=== PATIENT | female | born 2005 | race Caucasian/White ===

== ENCOUNTER 2024-02-25 15:33 | Day surgery (SDC) | payer OTHER, SELFPAY ==
[2024-02-25] VITALS (14 sets, daily range): BP systolic 97–127; BP diastolic 54–76; PULSE 53–75; RESP 12–18; TEMP 36.1–37; O2SAT 99–100; BMI 23.0
--- NOTE | 2024-02-25 13:42 | PC.NURSE ---
Report to the Outpatient Waiting Room, entrance under the green pavilion located off [facility], at time _0715_ on date _[id number]_. Planned Procedure Time: _0915_.? Time changes happen often and if your time is changed the preop area will call you the afternoon before. - You and your visitor will be asked to self-screen and do not enter if you have any COVID symptoms. Please call surgeon if you need to reschedule. - A mask is optional within the hospital at this time. Patients may have clear liquids (water, carbonated beverages, clear teas, apple juice) until 3 hours prior to surgery with a maximum of 20 ounces. - No food from midnight until time of surgery and no smoking. This includes no chewing gum, candy or mints. Take only the following medications with a SIP of water on the morning of surgery: ____Pain med if needed. Hasn't picked up new Rx so doesn't know what it is. DO NOT STOP ANY OF YOUR OTHER PRESCRIPTION MEDICATIONS PRIOR TO SURGERY EXCEPT THE FOLLOWING Medications to discontinue per physician ____None Date to take last dose Please no make-up, nail croatian, hairspray, perfume, deodorant, or body powder the day of surgery.? No jewelry (including any body piercings) or valuables the day of surgery, leave them at home.? Please take a shower or bath the night before, or the morning of, surgery with an antibacterial soap.? Wear comfortable, loose fitting clothing.? - Jewelry must be removed prior to entering the operating room.? Rings and piercings that are not removed may be cut off. - The hospital will not accept responsibility for valuables.? - Please leave all valuables, including medications, at home the day of surgery. If you are going home after surgery, a licensed peg driver must drive you home.? - NO public transportation without another adult if you receive anesthesia. - We recommend that an adult stay with you for 24 hours following discharge. - We also recommend that you do not drive, make important decision, drink alcoholic beverages, or take any drugs that were not prescribed by your health care provider for at least 24 hours after your discharge time. Follow any additional instructions given to you from your surgeon. Telephone instructions given to __Sussy__and asked if any additional questions and then verbalized understanding. Patient advised to call surgeon office or pre surgery nurse liaison [phone] if any additional questions.
[2024-02-25 16:00] LABS: Basophils Absolute Auto 0.1 K/mm3 (0.0-0.1); Basophils Percent Auto 0.4 % (0.2-1.2); Eosinophils Absolute Auto 0.1 K/mm3 (0-0.3); Eosinophils Percent Auto 0.6 % (0-4.4); Hematocrit 35.9 % (37.0-47.0); Immature Granulocyte Absolute 0.06 K/mm3 (0.00-0.031); Immature Granulocyte Percent A 0.4 % (0-0.5); Lymphocytes Percent Auto 26.2 % (18.3-44.2); Mean Corpuscular HGB Conc 33.4 g/dl (32-36); Mean Corpuscular Hemoglobin 30.7 pg (26-34); Mean Corpuscular Volume 91.8 fl (80-100); Mean Platelet Volume 10.1 fl (7.4-10.4); Monocytes Absolute Auto 1.1 K/mm3 (0.1-0.6); Monocytes Percent Auto 7.9 % (2.6-8.5); Neutrophils Absolute Auto 9.1 K/mm3 (1.3-6.7); Neutrophils Percent Auto 64.5 % (45.5-73.1); Platelet Count Result 301 k/mm3 (150-375); Red Blood Count 3.91 M/mm3 (4.2-5.4); Red Cell Distribution Width 12.3 % (11.5-14.5); White Blood Count 14.1 K/mm3 (4.5-10.0)
--- NOTE | 2024-02-25 16:02 | ED_ITS ---
HPI - Weakness General Chief complaint: Weakness Stated complaint: suspected hypovolemia Time Seen by Provider: 02/25/24 15:49 Source: patient Mode of arrival: ambulatory Limitations: no limitations History of Present Illness HPI Narrative: Patient presents with vaginal bleeding. She states her LMP was 12/09/23. At approximately her 6 wk ultrasound, a blighted ovum was seen. Patient was advised on miscarriage management and had elected with attempting to pass it naturally but then she started bleeding on Friday a little, 1 pad per day but then within 2 hours earlier today she bled through 2 pairs of period underwear within 10 minutes and then a pair of boxers and sweat pants. Went to Ronen Ng's office who recommend she present to the ED. She has been bleeding large clots. Related Data Home Medications ?Medication ?Instructions ?Recorded ?Confirmed ?Last Taken ?Type No Home Medications 02/25/24 02/25/24 Unknown History Allergies Allergy/AdvReac Type Severity Reaction Status Date / Time No Known Allergies Allergy Verified 02/25/24 17:08 [facility] Past Medical History Medical History (Updated 02/25/24 @ 16:50 by Abelardo Mckenzie, ) Vasovagal syndrome Rheumatoid arthritis Social History Social History Tobacco type: e-cigarettes/vaping Substance use type: marijuana Other substance usage details: once or twice a day. Living arrangements: with family Spiritual care concerns: No Exam 2 Narrative: GENERAL: well-nourished, in moderate acute distress; pale HEAD: Normocephalic, atraumatic. EYES: Non injected, non icteric ENT: Nares clear, no rhinorrhea or epistaxis. NECK: Supple. CHEST: Speaking in full sentences. No respiratory distress. HEART: Bradycardic rate and rhythm. . ABDOMEN: Soft, nondistended. Non tender to palpation. No rigidity/guarding. Not peritoneal. : Blood at external genitalia is appreciated though seems to be briefly improved at the time of my exam compared to a few minutes prior EXTREMITIES: Normal range of motion. No lower extremity edema. SKIN: Warm, dry, no rash. NEURO: No focal deficits. Alert and oriented x3. PSYCH: Normal mood and affect. Course Vital Signs Vital signs: Vital Signs Temperature 97.6 F 02/25/24 15:41 Pulse Rate 53 L 02/25/24 15:41 Respiratory Rate 18 02/25/24 15:41 Pulse Oximetry 99 02/25/24 15:41 Oxygen Delivery Room Air 02/25/24 15:41 Temperature 97.6 F 02/25/24 15:41 Pulse Rate 53 L 02/25/24 15:41 Respiratory Rate 18 02/25/24 15:41 Blood Pressure 126/62 02/25/24 16:10 Pulse Oximetry 99 02/25/24 15:41 Oxygen Delivery Room Air 02/25/24 15:41 MDM - Weakness MDM Narrative Medical decision making narrative: Patient presents with vaginal bleeding. In the ED she is afebrile with VS that show bradycardia. Blood pressure reportedly lower in triage where she had a syncopal episode and was noted to have lost a lost of blood. She had come from [facility] Ronen Ng's office who confirms she had a missed and will need emergent D&C. Hemoglobin normal. This is conveyed to him and he verifies understanding and that he will get the OR team ready. Hyperglycemia without anion gap acidosis. In regards to NPO status, Patient states approximately 2-1/2 hours prior to arrival she did have a few cookies. Hypokalemia. IV ordered. Patient transported to OR. Lab Data 02/25/24 15:54 02/25/24 15:54 Labs: Lab Results 02/25/24 Range/Units 15:54 WBC 14.1 H (4.5-10.0) K/mm3 RBC 3.91 L (4.2-5.4) M/mm3 Hgb 12.0 (12.0-15.0) g/dL Hct 35.9 L (37.0-47.0) % MCV 91.8 (80-100) fl MCH 30.7 (26-34) pg MCHC 33.4 (32-36) g/dl RDW 12.3 (11.5-14.5) % Plt Count 301 (150-375) k/mm3 MPV 10.1 (7.4-10.4) fl Immature Gran % (Auto) 0.4 (0-0.5) % Neut % (Auto) 64.5 (45.5-73.1) % Lymph % (Auto) 26.2 (18.3-44.2) % Amelia % (Auto) 7.9 (2.6-8.5) % Eos % (Auto) 0.6 (0-4.4) % Baso % (Auto) 0.4 (0.2-1.2) % Lymph # (Auto) 3.70 H (0.9-3.2) K/mm3 Amelia # (Auto) 1.1 H (0.1-0.6) K/mm3 Eos # (Auto) 0.1 (0-0.3) K/mm3 Baso # (Auto) 0.1 (0.0-0.1) K/mm3 Abs Immat Gran (auto) 0.06 H (0.00-0.031) K/mm3 Absolute Neuts (auto) 9.1 H (1.3-6.7) K/mm3 Absolute Nucleated RBC 0.000 (0.0-0.012) K/mm3 Nucleated RBC % 0.0 (0.0-0.2) % PT 13.4 (11.1-14.7) Seconds INR 1.0 APTT 25.7 (22.3-36.8) Seconds Sodium 135 (134-143) mmol/L Potassium 3.2 L (3.4-5.0) mmol/L Chloride 105 (98-107) mmol/L Carbon Dioxide 24 (22-30) mmol/L Anion Gap 6 (4-12) mmol/L BUN 6 L (8-21) mg/dL Creatinine 0.49 L (0.7-1.0) mg/dL Estim Creat Clear Calc 122 ml/min Estimated GFR > 60 (59 - ) Glucose 143 H (65-110) mg/dL Calcium 8.9 (8.9-10.7) mg/dL Magnesium 1.8 (1.6-2.3) mg/dL Total Bilirubin 0.5 (0.2-1.3) mg/dL AST 30 (14-36) U/L ALT 31 (6-35) U/L Alkaline Phosphatase 69 (45-116) U/L Total Protein 7.0 (6.3-8.6) g/dL Albumin 4.1 (3.7-5.6) g/dL Beta HCG, Quant 4701.30 mIU/ML Blood Type A Positive Antibody Screen Negative Screen Not Reportable Baby's Blood Type Not Reportable Baby's CHARLENE Not Reportable Doses of RhIg Required 0 Discharge Plan Discharge Clinical Impression: , missed, Vaginal bleeding before 22 weeks gestation, Hyperglycemia, Hypokalemia Patient Disposition: Still a Patient Condition: Stable
[2024-02-25 16:10] LABS: Alanine Aminotransferase 31 U/L (6-35); Albumin Level 4.1 g/dL (3.7-5.6); Alkaline Phosphatase 69 U/L (45-116); Anion Gap 6 mmol/L (4-12); Aspartate Amino Transferase 30 U/L (14-36); Bilirubin,Total 0.5 mg/dL (0.2-1.3); Blood Urea Nitrogen 6 mg/dL (8-21); Calcium 8.9 mg/dL (8.9-10.7); Carbon Dioxide 24 mmol/L (22-30); Chloride 105 mmol/L (98-107); Estimated CRCL calculation 122 ml/min; Estimated Glomerular Filt Rate > 60; Glucose 143 mg/dL (65-110); Potassium 3.2 mmol/L (3.4-5.0); Sodium 135 mmol/L (134-143)
[2024-02-25 16:12] LABS: Prothrombin Time 13.4 Seconds (11.1-14.7)
[2024-02-25 16:13] LABS: Partial Thromboplastin Time 25.7 Seconds (22.3-36.8)
--- NOTE | 2024-02-25 16:14 | HP_ITS ---
This report was moved to the correct visit on 02/26/2024. The original report was signed by Jamal Fraser MD on 02/25/241613. History and Physical Update Update Date/Time: 02/25/24 16:14 History and Physical has been reviewed, including an updated exam of the patient. There are NO changes in the patient's condition. Risks, benefits, and alternatives have been discussed and questions answered. Patient agrees to proceed with procedure. Please be advised this is a medical document. It is intended for crsj-qo-hypy communication. It is written in medical language and may contain unfamiliar abbreviations or verbiage. Medical documents are intended to carry relevant information, facts as evident, and the clinical opinion of the practitioner at the time of the encounter. This report may have been done utilizing a voice recognition system. Attempts have been made to correct errors. However, there may be uncorrected grammatical, spelling, and recognition errors present. The file time of this note does not necessarily represent the time the patient was seen. Report Initialized date/time: Jamal Fraser MD 02/25/241613 Electronically signed by: Jamal Fraser MD 02/25/241613 [facility]
--- NOTE | 2024-02-25 16:14 | HP_ITS ---
This report was moved to the correct visit on 02/26/2024. The original report was signed by Jamal Fraser MD on 02/25/24 [id number]. H&P: HPI History of Present Illness Date/Time: 02/25/24 16:11 Chief Complaint: /vaginal bleeding with missed A/B Narrative: This is a 18-year-old 1 para 0 in her 1st trimester of the with the known missed A/B she has been following this for couple weeks and did not succumb to a suction D&C she began bleeding heavily and is in the ER. Her bleeding is somewhat slowed but she will undergo suction dilatation curettage Review of Systems Review of Systems: All systems reviewed & are unremarkable except as noted in HPI and below PMFSH Social History Social History Tobacco type: e-cigarettes/vaping Substance use type: marijuana Other substance usage details: once or twice a day. Living arrangements: with family Spiritual care concerns: No Meds Home Medications and Allergies Home Medications ?Medication ?Instructions ?Recorded ?Confirmed ?Type No Home Medications 02/25/24 02/25/24 History Allergies Allergy/AdvReac Type Severity Reaction Status Date / Time No Known Allergies Allergy Verified 02/25/24 15:36 Exam Const: General: cooperative, healthy appearing, comfortable and uncomfortable Nutritional Appearance: average body habitus Orientation/consciousness: oriented to person, oriented to place and oriented to time HENMT: Head: normal to inspection Resp: Effort & Inspection: normal respiratory effort Cardio: Rate: regular rate Rhythm: regular rhythm Heart sounds: S1 normal heart sound present and S2 normal heart sound present GI: Inspection: normal to inspection Auscultation: normal bowel sounds : External Female Exam: normal external appearance and normal appearance of the urethra Speculum Exam - Vagina: normal appearance of the vagina Speculum Exam - Cervix: normal appearance of the cervix Bimanual exam- vagina & uterus: enlarged Bimanual Exam- Adnexa, other: normal adnexae Assessment and Plan Assessment and plan (1) Vaginal bleeding before 22 weeks gestation: Code(s): O20.9 - Hemorrhage in early , unspecified Status: Acute (2) , missed: Code(s): O02.1 - Missed Status: Acute Plan Proceed with suction dilatation curettage Please be advised this is a medical document. It is intended for niin-od-amxh communication. It is written in medical language and may contain unfamiliar abbreviations or verbiage. Medical documents are intended to carry relevant information, facts as evident, and the clinical opinion of the practitioner at the time of the encounter. This report may have been done utilizing a voice recognition system. Attempts have been made to correct errors. However, there may be uncorrected grammatical, spelling, and recognition errors present. The file time of this note does not necessarily represent the time the patient was seen. Report Initialized date/time: Jamal Fraser MD 02/25/24 / 1614 Electronically signed by: Jamal Fraser MD 02/25/24 161 [facility]
--- NOTE | 2024-02-25 16:29 | PC.NURSE ---
Chemistry called for magnesium add on
--- NOTE | 2024-02-25 16:49 | P.PNAN_ITS ---
Anes - Initial Pre Proc Eval Procedure: suction D&C Date/Time: 02/25/24 16:49 Surgeon: Jamal Ng MD Pre Op Diagnosis: missed Ab Pre Op Diagnosis: suspected hypovolemia Patient Data Age: 18 Gender: F Height: 1.57 m Weight: 56 kg Last Vital Signs Temp 36.4 C 02/25/24 15:41 Pulse 53 L 02/25/24 15:41 Resp 18 02/25/24 15:41 BP 126/62 02/25/24 16:10 Pulse Ox 99 02/25/24 15:41 O2 Del Method Room Air 02/25/24 15:41 Allergies Allergy/AdvReac Type Severity Reaction Status Date / Time No Known Allergies Allergy Verified 02/25/24 15:36 Home Medications ?Medication ?Instructions ?Recorded ?Confirmed ?Type No Home Medications 02/25/24 02/25/24 History Laboratory Tests 02/25/24 15:54 WBC 14.1 H K/mm3 (4.5-10.0) RBC 3.91 L M/mm3 (4.2-5.4) Hgb 12.0 g/dL (12.0-15.0) Hct 35.9 L % (37.0-47.0) MCV 91.8 fl (80-100) MCH 30.7 pg (26-34) MCHC 33.4 g/dl (32-36) RDW 12.3 % (11.5-14.5) Plt Count 301 k/mm3 (150-375) MPV 10.1 fl (7.4-10.4) Immature Gran % (Auto) 0.4 % (0-0.5) Neut % (Auto) 64.5 % (45.5-73.1) Lymph % (Auto) 26.2 % (18.3-44.2) Montague % (Auto) 7.9 % (2.6-8.5) Eos % (Auto) 0.6 % (0-4.4) Baso % (Auto) 0.4 % (0.2-1.2) Lymph # (Auto) 3.70 H K/mm3 (0.9-3.2) [place] # (Auto) 1.1 H K/mm3 (0.1-0.6) Eos # (Auto) 0.1 K/mm3 (0-0.3) Baso # (Auto) 0.1 K/mm3 (0.0-0.1) Abs Immat Gran (auto) 0.06 H K/mm3 (0.00-0.031) Absolute Neuts (auto) 9.1 H K/mm3 (1.3-6.7) Absolute Nucleated RBC 0.000 K/mm3 (0.0-0.012) Nucleated RBC % 0.0 % (0.0-0.2) PT 13.4 Seconds (11.1-14.7) INR 1.0 APTT 25.7 Seconds (22.3-36.8) Sodium 135 mmol/L (134-143) Potassium 3.2 L mmol/L (3.4-5.0) Chloride 105 mmol/L (98-107) Carbon Dioxide 24 mmol/L (22-30) Anion Gap 6 mmol/L (4-12) BUN 6 L mg/dL (8-21) Creatinine 0.49 L mg/dL (0.7-1.0) Estim Creat Clear Calc 122 ml/min Estimated GFR > 60 (59 - ) Glucose 143 H mg/dL (65-110) Calcium 8.9 mg/dL (8.9-10.7) Total Bilirubin 0.5 mg/dL (0.2-1.3) AST 30 U/L (14-36) ALT 31 U/L (6-35) Alkaline Phosphatase 69 U/L (45-116) Total Protein 7.0 g/dL (6.3-8.6) Albumin 4.1 g/dL (3.7-5.6) Beta HCG, Quant 4701.30 mIU/ML Patient hx anesthesia problems: none Family hx anesthesia problems: none Results Review: All pre-operative results and documents have been reviewed as part of the pre- operative evaluation. [facility] Past Medical History Medical History (Updated 02/25/24 @ 16:50 by Abelardo Mckenzie DO) Vasovagal syndrome Rheumatoid arthritis Social History Social History Tobacco type: e-cigarettes/vaping Substance use type: marijuana Other substance usage details: once or twice a day. Living arrangements: with family Spiritual care concerns: No Anes - Eval Final PreProcedure Day of Procedure 02/25/24 16:49 Patient weight: normal Heart: regular rate and rhythm Lungs: clear to auscultation and normal air movement Airway: Mallampati scale class 1 Neurological: alert and oriented Last oral intake: 4 hours (cookies 3 hours ago) ASA classification: III Emergent: yes Anesthetic plan: proceed Anesthesia type and monitoring: general ETT and standard monitoring Results Review: All pre-operative results and documents have been reviewed as part of the pre- operative evaluation. Informed Consent: The patient's anesthetic plan and its attendant risks and benefits were discussed with the patient/family/POA. Questions were solicited and answers provided to the satisfaction of the patient/family/POA.
[2024-02-25] MEDS: KCL 20 MEQ/SW 100 ML 100 ML 50 MEQ IVPB (16:56)
[2024-02-25 16:57] LABS: Magnesium 1.8 mg/dL (1.6-2.3)
[2024-02-25] MEDS: LIDOCAINE 1% LOCAL INJ 10 ML VIAL INFILTRATE (17:22)
--- NOTE | 2024-02-25 17:32 | OP_ITS ---
This report was moved to the correct visit on 02/27/2024. The original report was signed by Jamal Fraser MD on 02/25/241731. Procedure Note - Detailed Date of Procedure 02/25/24 Pre-op Diagnosis missed ab Post-op Diagnosis Same Procedure Performed suction dilatation jossy curettage Surgeon Jamal Ng MD Anesthesia General and Local Indications this is a 18-year-old the 1st trimester missed A/B actively bleed Findings ing uterus sounded to 10cm. Tissue consistent with products of conception. Description of Procedure Patient was prepped draped in the normal sterile fashion placed in dorsal lithotomy position. Under excellent general endotracheal anesthesia weighted speculum placed posterior fornix vagina. Anterior lip of the cervix grasped with a single-tooth tenaculum. 2.5cc 1% xylocaine anesthesia placed at 2, 4, 8, 10:00 a.m. the cervix. Uterus sounded to 10cm. Serial dilatation with fragmented dilators performed followed by passes the 10. Suction curette a moderate amount of blood and clot of tissue was removed from the uterus. When a good grating sound was heard the instruments withdrawn blood loss was estimated 50cc. All sponge, needle, instrument counts were correct. There were no immediate complications noted Estimated Blood Loss 50 Drains No Packing No Pathology Yes Complications No immediate complications Condition Stable Disposition PACU Please be advised this is a medical document. It is intended for dkjl-yk-wcsz communication. It is written in medical language and may contain unfamiliar abbreviations or verbiage. Medical documents are intended to carry relevant information, facts as evident, and the clinical opinion of the practitioner at the time of the encounter. This report may have been done utilizing a voice recognition system. Attempts have been made to correct errors. However, there may be uncorrected grammatical, spelling, and recognition errors present. The file time of this note does not necessarily represent the time the patient was seen. Report Initialized date/time: Jamal Fraser MD 02/25/241731 Electronically signed by: Jamal Fraser MD 02/25/241731 [facility]
[2024-02-25] MEDS: LACTATED RINGERS 1,000 ML 30 ML IV CONT ×2 (17:39→18:31)
--- NOTE | 2024-02-25 20:46 | SUR.PHASEII ---
Patient had a K rider that was started in pre-op associated with other V#. RN let it completely infuse before discharging patient home.
== END 2024-02-25 19:50 | disposition home or self-care (01) ==
LOC: ANHED 16:21 → ANHSURGERY 16:23
PROVIDERS: Physician Assistant; Emergency Provider Student in an Organized Health Care Education/Training Program; Visit Provider Obstetrics & Gynecology
PROC: (CPT 59820; principal; 2024-02-25 16:00)
DX: O02.1 Missed abortion (principal); F17.290 Nicotine dependence, other tobacco product, uncomplicated; F12.90 Cannabis use, unspecified, uncomplicated; M06.9 Rheumatoid arthritis, unspecified
CPT/HCPCS: 59820; 36415; 80053; 83735; 84702; 85025; 85461; 85610; 85730; 86850; 86900; 86901; 88305; J2003; J2250; J3010; J3480

== ENCOUNTER 2025-01-01 05:26 | Outpatient (CLI) | payer OTHER, SELFPAY ==
--- NOTE | 2025-01-01 06:00 | PC.NURSE ---
See OBIX note for additional heart rate assessment.
[2025-01-01 06:31] VITALS: BP 119/70; PULSE 70
[2025-01-01 06:46] VITALS: BP 127/71; PULSE 80
[2025-01-01 07:01] VITALS: BP 119/81; PULSE 69
[2025-01-01 07:16] VITALS: BP 113/82; PULSE 82
--- NOTE | 2025-01-01 07:16 | PC.NURSE ---
Called Dr. Celis with pt status. Pt admitted with complaints of leaking fluid. ROM plus negative. Reactive tracing. Occasional contractions noted on tracing. June D/C home.
== END 2025-01-01 07:23 | disposition home or self-care (01) ==
LOC: ANHOBOP 06:23 → ANHLDR 06:29
PROVIDERS: PCP Family Medicine; Visit Provider Obstetrics & Gynecology
DX: O42.90 Premature rupture of membranes, unspecified as to length of time between rupture and onset of labor, unspecified weeks of gestation (principal); Z3A.00 Weeks of gestation of pregnancy not specified
CPT/HCPCS: 84112

== ENCOUNTER 2025-01-04 03:05 | Inpatient (IN) | payer OTHER, SELFPAY ==
[2025-01-04] VITALS (143 sets, daily range): BP systolic 79–156; BP diastolic 35–102; PULSE 56–228; RESP 15–18; TEMP 36.4–37.3; O2SAT 83–100; BMI 36.3
--- NOTE | 2025-01-04 03:51 | LDADM ---
This patient, Sussy Licona, was admitted to Labor/Delivery/Recovery 105 on 01/04/25 at 03:05. Plans for labor, pain management and were discussed with patient. Patient/family oriented to hospital policies and general routines including ID bracelet, bed and alarms, visiting hours, pain management, procedures, bathroom and other care routines, personal items, smoking policy, room service/diet and guest tray routines, infant security routines, and visiting hours. Patient/Family are encouraged to report perceived risks to care and to ask questions if they do not understand what they are told or what they should do. See OBIX for further documentation.
[2025-01-04 04:10] LABS: Hematocrit 30.7 % (37.0-47.0); Hemoglobin 9.5 g/dL (12.0-15.0); Immature Granulocyte Percent A 1.0 % (0-0.5); Lymphocytes Absolute Auto 1.71 K/mm3 (0.9-3.2); Mean Corpuscular HGB Conc 30.9 g/dl (32-36); Mean Corpuscular Hemoglobin 25.2 pg (26-34); Mean Corpuscular Volume 81.4 fl (80-100); Nucleated Red Blood Cells Absolute Auto 0.000 K/mm3 (0.0-0.012); Nucleated Red Blood Cells Perc 0.0 % (0.0-0.2); Platelet Count Result 231 k/mm3 (150-375); Red Blood Count 3.77 M/mm3 (4.2-5.4); White Blood Count 12.4 K/mm3 (4.5-10.0)
[2025-01-04] MEDS: LACTATED RINGERS 1,000 ML 125 ML IV CONT (04:17)
[2025-01-04] MEDS: OXYTOCIN 30 UNITS/NS 500 ML 30 UNITS/500 ML BAG IV CONT (04:17)
[2025-01-04 04:50] LABS: Syphilis IgG/IgM Antibody Non-Reactive (Nonreactive)
[2025-01-04] MEDS: fentaNYL CITRATE INJ (*CRX) 100 MCG/2 ML VIAL IV PUSH ×3 (05:45→08:02)
--- NOTE | 2025-01-04 06:23 | P.PNAN_ITS ---
Anes - Eval Pre Procedure Procedure: Labor epidural Date/Time: 01/04/25 06:23 Surgeon: Ronen Ng Preop Diagnosis: Abdominal pain with contractions Pre Op Diagnosis: Contractions Patient Data Age: 19 Gender: F Height: 1.57 m Weight: 90 kg Last Vital Signs Temp 97.5 F L 01/04/25 03:30 Pulse 83 01/04/25 06:15 BP 124/66 01/04/25 06:15 Pulse Ox 97 01/04/25 06:17 Allergies Allergy/AdvReac Type Severity Reaction Status Date / Time No Known Allergies Allergy Verified 01/04/25 04:01 Home Medications ?Medication ?Instructions ?Recorded ?Confirmed ?Type No Home Medications 02/25/24 01/01/25 H istory Laboratory Tests 01/04/25 04:05 WBC 12.4 H K/mm3 (4.5-10.0) RBC 3.77 L M/mm3 (4.2-5.4) Hgb 9.5 L g/dL (12.0-15.0) Hct 30.7 L % (37.0-47.0) MCV 81.4 fl (80-100) MCH 25.2 L pg (26-34) MCHC 30.9 L g/dl (32-36) RDW 15.2 H % (11.5-14.5) Plt Count 231 k/mm3 (150-375) MPV 11.2 H fl (7.4-10.4) Immature Gran % (Auto) 1.0 H % (0-0.5) Neut % (Auto) 75.7 H % (45.5-73.1) Lymph % (Auto) 13.8 L % (18.3-44.2) Caldwell % (Auto) 8.6 H % (2.6-8.5) Eos % (Auto) 0.6 % (0-4.4) Baso % (Auto) 0.3 % (0.2-1.2) Lymph # (Auto) 1.71 K/mm3 (0.9-3.2) Caldwell # (Auto) 1.1 H K/mm3 (0.1-0.6) Eos # (Auto) 0.1 K/mm3 (0-0.3) Baso # (Auto) 0.0 K/mm3 (0.0-0.1) Abs Immat Gran (auto) 0.13 H K/mm3 (0.00-0.031) Absolute Neuts (auto) 9.4 H K/mm3 (1.3-6.7) Absolute Nucleated RBC 0.000 K/mm3 (0.0-0.012) Nucleated RBC % 0.0 % (0.0-0.2) Syphilis IgG/IgM Ab Non-reactive (Nonreactive) Blood Type A Positive Antibody Screen Negative : gestational age HCG: positive Patient hx anesthesia problems: none Family hx anesthesia problems: none Results Review: All pre-operative results and documents have been reviewed as part of the pre- operative evaluation. [facility] Past Medical History Medical History Obesity OCD (obsessive compulsive disorder) PTSD (post-traumatic stress disorder) Anxiety and depression Vasovagal syndrome Rheumatoid arthritis Family History Family History Grandparent Diabetes 1.5, managed as type 2 Colon cancer Heart attack Hypertension Mother Diabetes 1.5, managed as type 2 Hypertension Cerebrovascular accident Hypothyroidism PCOS (polycystic ovarian syndrome) Other Hypertension PCOS (polycystic ovarian syndrome) Sibling Hypertension PCOS (polycystic ovarian syndrome) Endometriosis Social History Social History Smoking status: Never smoker Tobacco type: e-cigarettes/vaping Substance use: former Substance use type: marijuana Other substance usage details: once or twice a day. Last use: 11/2024 Lack of Transportation: No Lack of Food: Never True Current Housing: I Have Housing Concerned About Future Housing: No Difficulty Paying Gas/Electric Bills: No Difficulty Paying for Meds: No Currently Unemployed: No Education: High School Diploma/GED Difficulty w/ Childcare or Family Care: No Living arrangements: with family Spiritual care concerns: No Exam Day of Procedure 01/04/25 06:23 Patient weight: obese
--- NOTE | 2025-01-04 06:47 | P.HP_ITS ---
H&P: HPI History of Present Illness Date/Time: 01/04/25 06:47 Chief Complaint: Rupture of membranes at term Narrative: This is a 19 year 2 para 0010 whose last menstrual period was 04/16/2024, EDC is 01/27/2025, presents at 36 and 5 7th weeks gestation with spontaneous rupture membranes prior to admission she is negative for group B strep and passed her diabetic screen had been otherwise unremarkable Review of Systems Review of Systems: All systems reviewed & are unremarkable except as noted in HPI and below PMFSH Past Medical History Medical History Obesity OCD (obsessive compulsive disorder) PTSD (post-traumatic stress disorder) Anxiety and depression Vasovagal syndrome Rheumatoid arthritis Family History Family History Grandparent Diabetes 1.5, managed as type 2 Colon cancer Heart attack Hypertension Mother Diabetes 1.5, managed as type 2 Hypertension Cerebrovascular accident Hypothyroidism PCOS (polycystic ovarian syndrome) Other Hypertension PCOS (polycystic ovarian syndrome) Sibling Hypertension PCOS (polycystic ovarian syndrome) Endometriosis Social History Social History Smoking status: Never smoker Tobacco type: e-cigarettes/vaping Substance use: former Substance use type: marijuana Other substance usage details: once or twice a day. Last use: 11/2024 Lack of Transportation: No Lack of Food: Never True Current Housing: I Have Housing Concerned About Future Housing: No Difficulty Paying Gas/Electric Bills: No Difficulty Paying for Meds: No Currently Unemployed: No Education: High School Diploma/GED Difficulty w/ Childcare or Family Care: No Living arrangements: with family Spiritual care concerns: No Meds Home Medications and Allergies Home Medications ?Medication ?Instructions ?Recorded ?Confirmed ?Type No Home Medications 02/25/24 01/01/25 H istory Allergies Allergy/AdvReac Type Severity Reaction Status Date / Time No Known Allergies Allergy Verified 01/04/25 04:01 Vital Signs Vital Signs - 24 hr 01/04/25 03:30 01/04/25 03:37 01/04/25 03:38 Temperature 97.5 F L Pulse Rate 76 Blood Pressure 141/87 H Pulse Oximetry 97 01/04/25 03:42 01/04/25 03:45 01/04/25 03:47 Temperature Pulse Rate 84 Blood Pressure 135/84 Pulse Oximetry 97 97 01/04/25 03:52 01/04/25 03:57 01/04/25 04:00 Temperature Pulse Rate 85 Blood Pressure 136/81 Pulse Oximetry 98 98 01/04/25 04:02 01/04/25 04:07 01/04/25 04:12 Temperature Pulse Rate Blood Pressure Pulse Oximetry 98 98 98 01/04/25 04:15 01/04/25 04:17 01/04/25 04:22 Temperature Pulse Rate 82 Blood Pressure 140/96 H Pulse Oximetry 98 100 01/04/25 04:27 01/04/25 04:31 01/04/25 04:32 Temperature Pulse Rate 77 Blood Pressure 94/62 L Pulse Oximetry 97 97 01/04/25 04:37 01/04/25 04:42 01/04/25 04:45 Temperature Pulse Rate 70 Blood Pressure 120/80 Pulse Oximetry 98 99 01/04/25 04:47 01/04/25 04:52 01/04/25 04:57 Temperature Pulse Rate Blood Pressure Pulse Oximetry 98 97 98 01/04/25 05:00 01/04/25 05:02 01/04/25 05:07 Temperature Pulse Rate 78 Blood Pressure 129/79 Pulse Oximetry 98 97 01/04/25 05:12 01/04/25 05:15 01/04/25 05:17 Temperature Pulse Rate 88 Blood Pressure Pulse Oximetry 97 92 01/04/25 05:19 01/04/25 05:22 01/04/25 05:27 Temperature Pulse Rate 87 Blood Pressure 127/86 Pulse Oximetry 97 97 01/04/25 05:30 01/04/25 05:32 01/04/25 05:37 Temperature Pulse Rate 83 Blood Pressure 149/89 H Pulse Oximetry 97 96 01/04/25 05:42 01/04/25 05:47 01/04/25 05:52 Temperature Pulse Rate Blood Pressure Pulse Oximetry 98 97 96 01/04/25 05:57 01/04/25 06:00 01/04/25 06:02 Temperature Pulse Rate 98 Blood Pressure 143/81 H Pulse Oximetry 98 97 01/04/25 06:07 01/04/25 06:12 01/04/25 06:15 Temperature Pulse Rate 83 Blood Pressure 124/66 Pulse Oximetry 97 96 01/04/25 06:17 01/04/25 06:30 01/04/25 06:45 Temperature Pulse Rate 90 81 Blood Pressure 139/78 129/69 Pulse Oximetry 97 Exam Const: General: cooperative, healthy appearing and comfortable Nutritional Appearance: average body habitus Orientation/consciousness: oriented to person, oriented to place and oriented to time HENMT: Head: normal to inspection Chest: Chest palpation & inspection: normal inspection of the chest Resp: Effort & Inspection: normal respiratory effort Cardio: Rate: regular rate Rhythm: regular rhythm Heart sounds: S1 normal heart sound present and S2 normal heart sound present GI: Inspection: normal to inspection (Gravid soft uterus) : External Female Exam: normal external appearance Speculum Exam - Vagina: normal appearance of the vagina Speculum Exam - Cervix: normal appearance of the cervix (The cervix 3cm. Clear fluid seen heart tones re assuring) H&P: Results Labs Labs: Short CBC 01/04/25 Range/Units 04:05 WBC 12.4 H (4.5-10.0) K/mm3 Hgb 9.5 L (12.0-15.0) g/dL Hct 30.7 L (37.0-47.0) % Plt Count 231 (150-375) k/mm3 Assessment and Plan Assessment and plan (1) Term : Code(s): Z34.90 - Encounter for supervision of normal , unspecified, unspecified trimester Status: Acute Plan Spontaneous vaginal delivery expected she is an epidural candidate.
--- NOTE | 2025-01-04 07:55 | PC.NURSE ---
Pt asked about risks involved with an epidural. I told her I would have someone from anesthesia discuss those risks with her. I spoke with Dr. Astorga and requested that someone go over risks with the pt. Dr. Astorga said he is not going to talk the pt into an epidural. I explained to him that she is undecided because she is concerned about any potential risks to her back specifically. He told me to give her pain medicine. I told him she has had two doses of fentanyl. He then asked me if no one explained an epidural to her during the last 9 months. I told him I have no idea what Dr. Ronen Ng discussed with her. Dr. Astorga then said they are swamped and he doesn't have time to do a pain consult on the day of, but if they get a break, he will send someone over, but if she changes her mind, let him know and he will come over and start an epidural.
[2025-01-04] MEDS: ONDANSETRON INJ 4 MG/2 ML VIAL IV PUSH (09:37)
[2025-01-04] MEDS: AMPICILLIN SODIUM 2 GM in SODIUM CHLORIDE 0.9% IV 100 ML 200 ML IVPB (12:05)
--- NOTE | 2025-01-04 12:18 | PM.OBPNLAB ---
Pain Control Date/time seen: 01/04/25 12:18 Pain control: tolerating well and epidural Pelvic Exam Dilation (cm): 6 Effacement (%): 100 station: -1 Amniotic membrane status: Leaking Comments: abx started Contractions Monitor mode: Internal
--- NOTE | 2025-01-04 13:54 | PM.OBPRVD ---
OB - Vaginal Delivery Note Procedure Delivery date: 01/04/25 Events: Premature Rupture of Membranes Induction method: None Delivery monitor: External FHT, External Uterine and Internal Uterine Route of delivery: Episiotomy description: None Laceration Description: Perineal - 2nd Degree Delivery repair: vicryl Specimen: No Quantitative Blood Loss (ml): 62 Anesthesia type: Epidural Disposition: Floor Complications: No immediate complications Narrative: Patient was admitted spontaneous rupture membranes at 36 and 5 7th weeks gestation Pitocin augmentation was begun after admission about 12hours out see progress an unremarkable 1st stage of labor had epidural anesthesia placed internal monitors placed she was complete she pushed delivered head spontaneously in the MARISABEL position. Anterior posterior shoulder delivered spontaneously. Cord clamped into a passed off the table given Apgars of 8 [id number] and 8 [id number]. Cord blood was drawn. Placenta delivered intact spontaneously. Twenty of Pitocin placed IV to help firm the uterus. The second-degree laceration was noted which did not extend and was closed with layered 3-0 Vicryl. QBL was 62cc. All sponge, needle, instrument counts were correct. There were no immediate complications Baby Date of : 01/04/25 Time of : 13:44 Gestational Age by Date: 36 gender: Female presentation: vertex position: Right Occiput Anterior Placenta delivery description: Spontaneous Cord Vessel Description: 3 Vessels score one minute: 8 score five minutes: 8
--- NOTE | 2025-01-04 13:58 | P.DS_ITS ---
DS: Admitting Diagnosis Discharge Date 01/05/2025 Admitting Diagnosis rupture membranes DS: Discharge Diagnosis Discharge Diagnosis (1) premature rupture of membranes: Code(s): O42.919 - premature rupture of membranes, unspecified as to length of time between rupture and onset of labor, unspecified trimester Status: Acute DS: Summary Hospital Course Reason for hospitalization: Patient was admitted on the evening of 01/03/2025 and underwent spontaneous vaginal delivery on 01/04/2025 Hospital Course: Patient's hospital course unremarkable. She remained afebrile. She was up, voiding without difficulty, eating regular diet, ambulating, generally without complaints. Time Spent with Patient Time attestation: Total time spent providing and/or coordinating discharge services: Exam Const: General: cooperative, healthy appearing and comfortable Nutritional Appearance: average body habitus Orientation/consciousness: oriented to person, oriented to place and oriented to time HENMT: Head: normal to inspection Chest: Chest palpation & inspection: normal inspection of the chest Resp: Effort & Inspection: normal respiratory effort Cardio: Rate: regular rate Rhythm: regular rhythm Heart sounds: S1 normal heart sound present and S2 normal heart sound present GI: Inspection: normal to inspection (Gravid soft uterus) : External Female Exam: normal external appearance Speculum Exam - Vagina: normal appearance of the vagina Speculum Exam - Cervix: normal appearance of the cervix (The cervix 3cm. Clear fluid seen heart tones reassuring) DS: Data Data Completed and Pending Labs on day of discharge: Labs from last 24 hours 01/04/25 04:05 WBC 12.4 H RBC 3.77 L Hgb 9.5 L Hct 30.7 L MCV 81.4 MCH 25.2 L MCHC 30.9 L RDW 15.2 H Plt Count 231 MPV 11.2 H Immature Gran % (Auto) 1.0 H Neut % (Auto) 75.7 H Lymph % (Auto) 13.8 L Callahan % (Auto) 8.6 H Eos % (Auto) 0.6 Baso % (Auto) 0.3 Lymph # (Auto) 1.71 Callahan # (Auto) 1.1 H Eos # (Auto) 0.1 Baso # (Auto) 0.0 Abs Immat Gran (auto) 0.13 H Absolute Neuts (auto) 9.4 H Absolute Nucleated RBC 0.000 Nucleated RBC % 0.0 Syphilis IgG/IgM Ab Non-reactive Blood Type A Positive Antibody Screen Negative Discharge Plan Discharge Attending physician on discharge: Jamal Fraser Discharging Clinician: Jamal Fraser Patient Disposition: Home Activity: may shower, no straining and pelvic rest Diet: heart healthy Wound Care Instructions: follow printed instructions Patient Instructions: Antibiotic Form Patient Language: Macedonian Stand Alone Forms: General Discharge Information Follow-up/Referrals: Jamal Fraser MD [Physician, [facility]] Discharge Medications: No Action No Home Medications Date of admission: 01/04/25 03:05 Primary Care Provider: Faina,Louis Livingston Admitting Provider: Jamal Fraser Attending physician on admission: Jamal Fraser Condition: Stable
[2025-01-04] MEDS: OXYTOCIN 30 UNITS/NS 500 ML 30 UNITS/500 ML BAG 125 UNITS IV CONT (14:17)
[2025-01-04] MEDS: WITCH HAZEL 40 PADS 1 PAD TOPICAL (15:03)
[2025-01-04] MEDS: BENZOCAINE 20% AER SPR (*SP) 56 GM CAN 1 SPRAY TOPICAL (15:03)
[2025-01-04] MEDS: ACETAMINOPHEN 325 MG TABLET 650 MG PO ×2 (15:03→23:55)
[2025-01-04] MEDS: METHYLERGONOVINE MALEATE 0.2 MG/ML VIAL IM (15:03)
--- NOTE | 2025-01-04 16:45 | OBPPTRN ---
Patient transferred to post room # 284 via wheelchair. Support person present. Oriented to unit, room, information board, rooming in, admission packet and security measures. Patient verbalizes understanding.
[2025-01-05 05:01] VITALS: BP 121/73; PULSE 73; RESP 16; TEMP 36.7; O2SAT 99
[2025-01-05 05:17] LABS: Hematocrit 27.4 % (37.0-47.0); Hemoglobin 8.3 g/dL (12.0-15.0)
[2025-01-05 07:15] VITALS: BP 123/78; PULSE 82; RESP 18; TEMP 36.8; O2SAT 99
--- NOTE | 2025-01-05 07:16 | P.PNOB_ITS ---
OB - PN: Subj Subjective Date/time seen: 01/05/25 07:16 Patient comments: no complaints, pain well controlled and tolerating diet [place] baby status: doing well OB - PN: Obj Data Labs 01/05/25 04:11 Labs: Laboratory Results - last 24 hr 01/05/25 04:11 Hgb 8.3 L Hct 27.4 L OB - PN A/P Assessment and Plan (1) premature rupture of membranes: Code(s): O42.919 - premature rupture of membranes, unspecified as to length of time between rupture and onset of labor, unspecified trimester Status: Acute Plan begin iron replacement Time Spent With Patient Time: Total time spent is greater than 50% in coordination of care (as documented) at patient's floor/unit and/or counseling patient: Review of Systems 2 Review of Systems: All systems reviewed & are unremarkable except as noted in HPI and below Exam 2 Const: General: cooperative, healthy appearing and comfortable Nutritional Appearance: average body habitus Orientation/consciousness: oriented to person, oriented to place and oriented to time HENMT: Head: normal to inspection Chest: Chest palpation & inspection: normal inspection of the chest Resp: Effort & Inspection: normal respiratory effort Cardio: Rate: regular rate Rhythm: regular rhythm Heart sounds: S1 normal heart sound present and S2 normal heart sound present GI: Inspection: normal to inspection (Gravid soft uterus) : External Female Exam: normal external appearance Speculum Exam - Vagina: normal appearance of the vagina Speculum Exam - Cervix: normal appearance of the cervix (The cervix 3cm. Clear fluid seen heart tones reassuring)
[2025-01-05] MEDS: MULTIVIT/MIN/PREN/FOL AC/IRON TABLET 1 TAB PO (09:19)
[2025-01-05] MEDS: DOCUSATE SODIUM 100 MG CAPSULE PO ×2 (09:19→18:17)
[2025-01-05] MEDS: ACETAMINOPHEN 325 MG TABLET 650 MG PO ×2 (09:21→18:17)
[2025-01-05 12:19] VITALS: BP 107/51; PULSE 74; RESP 14; TEMP 36.9; O2SAT 98
--- NOTE | 2025-01-05 13:25 | PC.NURSE ---
Consulted with patient to assess needs related to . Discussed with mother her successes, concerns and any questions she has. Per mother this is the second time she has used the nipple shield to latch , prior to my arrival he fed for 4 minutes on her right breast with the shield in cross cradle position. Infant is showing feeding cues at this time so mother would like to see if infant will feed at the breast. We reviewed working with the , supporting breast, protecting her nipples with an optimal deep latch, good positioning, and good hand washing. Encouraged understanding the benefits of skin to skin, responding to feeding cues, frequencies of feeding 8-12 times in 24 hours (approximately 2-3 hours), duration of feedings, milk production, intake/output feeding sheet and signs of adequate intake encouraging swallowing at the breast. Reviewed positioning and alignment, supporting breast, off-centered (asymmetrical latch) and leading with the chin with big, open, wide gape. Infant attempted to latch without a nipple shield but was unsuccessful, 5mls of formula was given per mothers choice as infant was showing later hunger cues. then latched optimally with the nipple shield to the [right] breast in [football] position. Education given to the mother of how to visualize the suckling (with good rocking jaw motion) swallows (dropping of the lower jaw) and how to listen for drinking at the breast (the ka sound). The was [able] to maintain latch without discomfort to mother. Nipple care reviewed with optimal latch, good positioning and using clean hands when touching her breast. Discussed with parents if infant continued to use the nipple shield that using a breast pump should be initiated, also discussed the 15--15 feeding plan, parents seemed to be on board, mother to decide if father of the baby was going to go home and retrieve her breast pump or if she julianna like to use the hospital pump while she is here. Resources used to facilitate learning were used from the [visual handouts/ tool/mom and baby guide]. Mother voiced understanding of the education shared, to call for assistance if the infant does not latch or if there is discomfort with . Reported to the Primary RN.
--- NOTE | 2025-01-05 17:29 | PC.NURSE ---
Breast pump provided due to maternal request and nipple shield use, mother wants to start the 15-15-15 feeding plan. Instructions given on cleaning, care, usage, that there should be no pain, pumping schedule for milk production, collection, and storage of human milk. Patient was assessed for correct placement, flange size (nipples 20mm, will use size 24 flange), to pump for comfort and nipple stretching/stimulation for adequate milk production every 3 hours after with the nipple shield (8 times in 24 hours). Parents are encouraged to record the pumping schedule on the feeding sheet.?Mother voiced understanding of the education shared along with mom/baby guide and the pump measurement, flange fit handout for additional resource information. Reported to the Primary RN.
[2025-01-05 21:12] VITALS: BP 110/61; PULSE 68; RESP 18; TEMP 37.2; O2SAT 97
[2025-01-06] MEDS: ACETAMINOPHEN 325 MG TABLET 650 MG PO (01:06)
--- NOTE | 2025-01-06 07:05 | PM.OBPNVD ---
OB - PN: Subj Subjective Date/time seen: 01/06/25 07:05 Patient comments: no complaints, pain well controlled and tolerating diet [place] baby status: doing well OB - PN: Obj Data Labs 01/05/25 04:11 OB - PN A/P Assessment and Plan (1) premature rupture of membranes: Code(s): O42.919 - premature rupture of membranes, unspecified as to length of time between rupture and onset of labor, unspecified trimester Status: Acute Plan home Time Spent With Patient Time: Total time spent is greater than 50% in coordination of care (as documented) at patient's floor/unit and/or counseling patient: Review of Systems Review of Systems: All systems reviewed & are unremarkable except as noted in HPI and below Exam Const: General: cooperative, healthy appearing and comfortable Nutritional Appearance: average body habitus Orientation/consciousness: oriented to person, oriented to place and oriented to time HENMT: Head: normal to inspection Chest: Chest palpation & inspection: normal inspection of the chest Resp: Effort & Inspection: normal respiratory effort Cardio: Rate: regular rate Rhythm: regular rhythm Heart sounds: S1 normal heart sound present and S2 normal heart sound present GI: Inspection: normal to inspection (Gravid soft uterus) : External Female Exam: normal external appearance Speculum Exam - Vagina: normal appearance of the vagina Speculum Exam - Cervix: normal appearance of the cervix (The cervix 3cm. Clear fluid seen heart tones reassuring)
[2025-01-06 08:15] VITALS: BP 136/84; PULSE 106; RESP 18; TEMP 36.9; O2SAT 100
[2025-01-06] MEDS: MULTIVIT/MIN/PREN/FOL AC/IRON TABLET 1 TAB PO (09:47)
[2025-01-06] MEDS: DOCUSATE SODIUM 100 MG CAPSULE PO ×2 (09:47→17:12)
--- NOTE | 2025-01-06 11:28 | PC.NURSE ---
Consulted with mother concerning needs and she shared her ability to independently latch infant optimally without pain, she is using the nipple shield with some of the feedings, using the breast pump after each feeding with the nipple shield and also supplementing. Mother is feeding appropriately for growth of infant and understands stimulating to eat if needed. Infant has had appropriate feedings in the last 24 hours meets the outcomes for weight, output, blood sugar and jaundice at this time. Reinforced understanding of milk production, transition of milk, signs of adequate intake, transition of stool, prevention/relief of engorgement, plugged ducts, mastitis, responsive watching for feeding cues, the different methods of stimulating to breastfeed 1-3 hours after the start of the last feeding, community resources, and when to call a provider using the resource of the feeding sheet along with the mom and baby guide. Mother voiced understanding of the information shared, is confident to continue effectively her at home, when to call for assistance, denies any additional assistance or education at this time. Reported to the Primary RN.
[2025-01-06] MEDS: INFLUENZA VACCINE 45 MCG/0.5 ML SYRINGE IM (17:12)
--- NOTE | 2025-01-06 18:22 | PC.NURSE ---
1800- This RN spoke with Dr. Celis on-call for Dr. Ronen Horan regarding pts discharge [place] scale score of 11. At Admission score was 9. This RN explained that pt stated she was taking Cymbalta 60mg prior to becoming and stopped once she found out she was . Per Dr. Celis- pt to call Dr. Ronen Ng's office tomorrow and get a sooner appt. This RN informed pt and she agreed, Also explained to pt that if her sx worsen, she becomes withdrawn, SI or HI she is to go to emergency room immediately or call 911. Pt agreed.
== END 2025-01-06 18:30 | disposition home or self-care (01) | DRG 805 ==
LOC: ANHLDR 13:59 → ANHOB2 16:50
PROVIDERS: Admitting Provider Obstetrics & Gynecology; PCP Family Medicine; Visit Provider Obstetrics & Gynecology
DX: O42.013 Preterm premature rupture of membranes, onset of labor within 24 hours of rupture, third trimester (principal); O60.14X0 Preterm labor third trimester with preterm delivery third trimester, not applicable or unspecified; Z37.0 Single live birth; Z3A.36 36 weeks gestation of pregnancy; O70.1 Second degree perineal laceration during delivery; Z23 Encounter for immunization
CPT/HCPCS: 36415; 85014; 85018; 85025; 86593; 86850; 86900; 86901; 90471; 90656; A9270; G0008; J0290; J2210; J2405; J2590; J2795; J3010; J7120